=== PATIENT | female | born 1995 | race African-American/Black ===

== ENCOUNTER 2017-03-12 14:37 | Emergency (ER) | payer OTHER ==
[~2017-03-12] VITALS: Ht 160 cm; Wt 100.0 kg
[2017-03-12] MEDS ORDERED: ADACEL/BOOSTRIX VACCINE (DIPHTH/PERTUSS/ACELL/TETANUS)0.5ML SYR (90715) IM ONE (19:15)
[2017-03-12] MEDS ORDERED: AUGMENTIN 875 MG TAB PO ONE (19:15)
[2017-03-12] MEDS ORDERED: AUGM875T28 PO ×2 (19:18→19:33)
[2017-03-12 19:41] VITALS: BP 158/67
== END 2017-03-12 19:43 | disposition home or self-care (01) ==
LOC: M ED 14:37
DX: S51.851A Open bite of right forearm, initial encounter (principal); L03.113 Cellulitis of right upper limb; W54.0XXA Bitten by dog, initial encounter; Y92.099 Unspecified place in other non-institutional residence as the place of occurrence of the external cause; Y93.89 Activity, other specified; Y99.9 Unspecified external cause status